=== PATIENT | female | born 1980 | race Caucasian/White ===

== ENCOUNTER 2021-07-16 16:36 | Emergency (ER) | payer MEDICAID ==
[~2021-07-16] VITALS: Ht 170 cm; Wt 81.0 kg
[2021-07-16] MEDS ORDERED: ACETAMINOPHEN 325 MG TABLET PO STA (18:07)
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
[2021-07-16 18:27] VITALS: BP 115/80
== END 2021-07-16 18:27 | disposition home or self-care (01) ==
LOC: ER 16:40
DX: S09.90XA Unspecified injury of head, initial encounter (principal); M25.642 Stiffness of left hand, not elsewhere classified; M25.641 Stiffness of right hand, not elsewhere classified; M79.642 Pain in left hand; M79.641 Pain in right hand; F17.210 Nicotine dependence, cigarettes, uncomplicated; Z87.820 Personal history of traumatic brain injury; V89.2XXA Person injured in unspecified motor-vehicle accident, traffic, initial encounter
CPT/HCPCS: 99283

== ENCOUNTER 2021-08-26 17:43 | Emergency (ER) | payer MEDICAID ==
[~2021-08-26] VITALS: Ht 170 cm; Wt 90.9 kg
[2021-08-26 18:13] VITALS: BP 100/71
[2021-08-26] MEDS ORDERED: BSS 15 ML IR ONE (19:15)
[2021-08-26] MEDS ORDERED: TETRACAINE 0.5% OPHTH SOLN 4 ML BTL (SINGLE DOSE ONLY) OU ONE (19:15)
[2021-08-26] MEDS ORDERED: FLUORESCEIN (FLUOR-I-STRIPS) 1 MG STRP OU ONE (19:15)
--- NOTE | 2021-08-26 19:19 | ED EENT ---
History of Present Illness General Chief Complaint: Eye Problems Stated Complaint: R EYE SWELLING/BURNING Nursing Triage Note: AMB TO ROOM WAS DX WITH SHINGLES ON 08/24 WAS GIVEN CREAM ONLYL TODAY WOKE UP AND WITH EYE SWOLLEN. Source: patient Exam Limitations: no limitations (PEDRO HERNANDEZ) History of Present Illness Date Seen by Provider: Aug 26, 2021 Time Seen by Provider: 18:18 Initial Comments Patient is a 41-year-old female who presents to ED with pain to the right side of her face. Was diagnosed with shingles 4 days ago. She reports a burning sensation across the right side of her forehead. She reports swelling of her right eyelid this morning. Denies any eye pain, visual changes. She reports redness and swelling with crusty lesions. She reports 2 nodules below her right jaw and right side of face. Denies visual loss, headache, vomiting, diarrhea, fever, chills. Currently using topical antibiotic ointment without much improvement. (PEDRO HERNANDEZ) Allergies and Home Medications Allergies Coded Allergies: morphine (Verified Allergy, Intermediate, RASH, 07/16/21) Patient Home Medication List Home Medication List Reviewed: Yes (PEDRO HERNANDEZ) Acyclovir (Acyclovir) 800 Mg Tablet, 800 MG PO 5XD Prescribed by: SHIRA CALLAHAN on 08/26/212001 Hydrocodone/Acetaminophen (Hydrocodone-Acetamin 5-325 mg) 1 Each Tablet, 1 TAB PO Q4H PRN for PAIN-MODERATE (5-7) Prescribed by: SHIRA CALLAHAN on 08/26/212001 Sulfamethoxazole/Trimethoprim (Bactrim Ds Tablet) 1 Each Tablet, 1 EACH PO BID Prescribed by: SHIRA CALLAHAN on 08/26/212001 Review of Systems Review of Systems Constitutional: No chills, No diaphoresis, No dizziness Eyes: Blurred Vision, Pain Ears: Denies Bloody Discharge Nose: denies congestion Mouth: denies clots, denies pain, denies swelling Throat: denies pain, denies swelling Respiratory: No cough, No orthopnea Cardiovascular: No chest pain, No edema Gastrointestinal: No abdominal pain, No constipation, No diarrhea (PEDRO HERNANDEZ) All Other Systems Reviewed Negative Unless Noted: Yes (PEDRO HERNANDEZ) Past Ntbjmxq-Rixfmh-Dlntsp Hx Patient Social History Tobacco Use?: Yes Substance use?: Yes Substance type: Marijuana Alcohol Use?: No (PEDRO HERNANDEZ) Immunizations Up To Date First/Initial COVID19 Vaccinat: AUG 14 COVID19 Vaccine Tobacco Stripper: ARIANNA (PEDRO HERNANDEZ) Physical Exam Vital Signs Vital Signs - First Documented 08/26/21 08/26/21 18:13 20:29 Temp 36.0 Pulse 78 Resp 18 B/P (MAP) 100/71 (81) Pulse Ox 98 O2 Delivery Room Air (MOI ROSARIO MD) Height, Weight, BMI Height: '" Weight: lbs. oz. kg; 31.00 BMI Method: General Appearance: WD/WN, no apparent distress Eyes: right eye lid inflammation; bilateral eye PERRL, bilateral eye EOMI Nose: No discharge, No dried blood, No sinus tenderness Mouth/Throat: No normal mouth inspection, No pharynx normal, No dental tenderness, No maxillary swelling Neck: non-tender, full range of motion, supple Cardiovascular: regular rate, rhythm, no edema, no gallop Gastrointestinal: normal bowel sounds, non tender, soft Neurologic/Psychiatric: publicity expert II-XII nml as tested, no motor/sensory deficits, alert, normal mood/affect, oriented x 3 (PEDRO HERNANDEZ) Progress/Results/Core Measures Results/Orders My Orders Orders - MOI ROSARIO MD Tetracaine 0.5% Ophth Melissa Sdv (Tetracai (08/26/21 19:15) Fluorescein Strips (Flztn-S-Bmttir) (08/26/21 19:15) Balanced Salt Irrigation Soln (Bss Irrig (08/26/21 19:15) (MOI ROSARIO MD) Medications Given in ED Current Medications Medications Dose Ordered Sig/Tor Route Start Time Stop Time Status Last Admin Dose Admin Acetaminophen/ Hydrocodone Bitart 1 ea ONCE ONCE PO 08/26/21 19:30 08/26/21 19:31 DC 08/26/21 19:33 1 EA Balanced Salt Solution 15 ml ONCE ONCE IR 08/26/21 19:15 08/26/21 19:16 DC 08/26/21 19:33 15 ML Fluorescein Sodium 1 mg ONCE ONCE OU 08/26/21 19:15 08/26/21 19:16 DC 08/26/21 19:33 1 MG Tetracaine HCl 4 ml ONCE ONCE OU 08/26/21 19:15 08/26/21 19:16 DC 08/26/21 19:33 4 ML (MOI ROSARIO MD) Vital Signs/I&O 08/26/21 08/26/21 18:13 20:29 Temp 36.0 37.0 Pulse 78 78 Resp 18 20 B/P (MAP) 100/71 (81) Pulse Ox 98 98 O2 Delivery Room Air (MOI ROSARIO MD) Blood Pressure Mean: 81 Departure Communication (Admissions) Patient with vesciular rash towards the right side of her upper face. Mild crusting noted. Right periorbital swelling erythema. Eye exam without evidence of dendritic lesions. Pupils reactive light. No erythematous injection. No pain with eye movement. No photophobia. Symptoms started 3 days ago. Patient has been applying topical ointment. Visual acuity right eye 20/20, left eye 20/20 bilateral 15/20. Patient will be discharged with acyclovir. Will discha rge with pain medication. Discussed postherpetic neuralgia and the potential need for symptoms. Concerning for secondary cellulitis with the crusting and erythema. History of staph infection. Will discharge with Bactrim. Recommend ophthalmology outpatient follow-up. Return precautions were discussed with patient. (PEDRO HERNANDEZ) Impression Primary Impression: Shingles Disposition: 01 HOME, SELF-CARE Condition: Stable Departure-Patient Inst. Decision time for Depature: 19:55 (PEDRO HERNANDEZ) Referrals: NO,LOCAL PHYSICIAN (PCP/Family) Primary Care Physician Patient Instructions: Shingles (DC) Scripts Sulfamethoxazole/Trimethoprim (Bactrim Ds Tablet) 1 Each Tablet 1 EACH PO BID for 7 Days, #14 TAB Prov: PEDRO HERNANDEZ 08/26/21 Acyclovir (Acyclovir) 800 Mg Tablet 800 MG PO 5XD for 7 Days, #35 TAB Prov: PEDRO HERNANDEZ 08/26/21 Hydrocodone/Acetaminophen (Hydrocodone-Acetamin 5-325 mg) 1 Each Tablet 1 TAB PO Q4H PRN for PAIN-MODERATE (5-7), #10 TAB Prov: PEDRO HERNANDEZ 08/26/21 ATTENDING PHYSICIAN NOTE: I was physically present as attending physician in the emergency department during the care of this patient. Approach to exam and plan of care discussed with Sandoval Hernandez. (MOI ROSARIO MD) PEDRO HERNANDEZ Aug 26, 2021 19:19 MOI ROSARIO MD Aug 27, 2021 02:11
[2021-08-26] MEDS ORDERED: HYDROcodone/APAP 5 MG/325 MG (LORTAB) TAB PO ONE (19:30)
[2021-08-26] MEDS ORDERED: ACYC-112 PO (20:02)
[2021-08-26] MEDS ORDERED: ACHD5005 PO (20:02)
[2021-08-26] MEDS ORDERED: SULF1TAB38 PO (20:02)
== END 2021-08-26 20:29 | disposition home or self-care (01) ==
LOC: EDUNIT# 17:43 → ER 17:45
DX: B02.9 Zoster without complications (principal); Z72.0 Tobacco use
CPT/HCPCS: 99283